=== PATIENT | male | born 1955 | race Caucasian/White ===

== ENCOUNTER 2016-06-08 08:40 | Day surgery (SDC) | payer MEDICARE ==
[2016-06-08] MEDS ORDERED: Lactated Ringer's 500 ML IV ONE (08:59)
[2016-06-08 09:11] VITALS: O2SAT 99
[2016-06-08] MEDS ORDERED: Propofol 10 mg/ml Inj (20 ML) ONE (09:44)
[2016-06-08 10:32] VITALS: TEMP 97
[2016-06-08 10:33] VITALS: BP 110/70; PULSE 69; RESP 16
== END 2016-06-08 11:32 | disposition home or self-care (01) ==
LOC: H.ENDO 08:40
PROVIDERS: ATTEND Internal Medicine Gastroenterology
DX: Z12.11 Encounter for screening for malignant neoplasm of colon (principal); E11.9 Type 2 diabetes mellitus without complications; E78.5 Hyperlipidemia, unspecified; F41.9 Anxiety disorder, unspecified; F03.90 Unspecified dementia, unspecified severity, without behavioral disturbance, psychotic disturbance, mood disturbance, and anxiety; K57.30 Diverticulosis of large intestine without perforation or abscess without bleeding
CPT/HCPCS: G0121; J2001; J2704; J7120